=== PATIENT | female | born 1975 ===

== ENCOUNTER 2019-10-10 17:35 | Emergency (ER) | payer OTHER ==
[2019-10-10 18:44] VITALS: BP 117/63
--- NOTE | 2019-10-10 18:48 | UC ---
Respiratory Complaint HPI - HPI Summary HPI Summary: 44-year-old female presents with complaints of cough and shortness of breath. States for approximately 3-4 weeks she's been having nasal congestion, sinus pressure, sore throat, and a nonproductive cough. States symptoms were improving however today developed fever, worsening cough, and shortness of breath. States chest feels "tight". Max temperature 100.5 F. Patient is a smoker. 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 Reports significant other has been having URI symptoms for the past 2-3 weeks as well. Denies headache, ear pain, dysphagia, palpitations, weakness, dizziness, abdominal pain, nausea, vomiting, or diarrhea. - History of Current Complaint Chief Complaint: UCRespiratory Stated Complaint: FEVER,SORE THROAT Time Seen by Provider: 10/10/19 17:58 Hx Obtained From: Patient Hx Last Menstrual Period: 1 month ago Pain Intensity: 3 - Allergies/Home Medications Allergies/Adverse Reactions: Allergies Allergy/AdvReac Type Severity Reaction Status Date / Time No Known Allergies Allergy Verified 10/10/19 17:57 Home Medications: Home Medications Acetaminophen [Tylenol Extra Strength] 500 mg PO ONCE PRN 10/10/19 [History Confirmed 10/10/19] Cough Medicine* PO ONCE PRN 10/10/19 [History] Doxycycline Hyclate 100 mg PO BID 10 Days #20 tablet 10/10/19 [Rx] Omeprazole 40 mg PO DAILY 10/10/19 [History Confirmed 10/10/19] PMH/Surg Hx/FS Hx/Imm Hx GI/ History: Gastroesophageal Reflux - Surgical History Surgical History: None - Family History Family History: Denies significant FMH - Social History Occupation: Employed Full-time Lives: With Family Alcohol Use: None Substance Use Type: None Smoking Status (MU): Current Every Day Smoker Type: Cigarettes Amount Used/How Often: 1/2 ppd Review of Systems All Other Systems Reviewed And Are Negative: Yes Constitutional: Positive: Fever, Fatigue Eyes: Negative: Drainage, Eye Redness ENT: Positive: Sore Throat, Nasal Discharge, Sinus Congestion, Sinus Pain/ Tenderness. Negative: Ear Ache Respiratory: Positive: Shortness Of Breath, Cough Cardiovascular: Negative: Palpitations, Chest Pain Gastrointestinal: Negative: Abdominal Pain, Vomiting, Nausea Genitourinary: Positive: Negative Musculoskeletal: Positive: Negative Neurological/Mental Status: Positive: Negative Is Patient Immunocompromised?: No Physical Exam - Summary Physical Exam Summary: GENERAL APPEARANCE: Well developed, well nourished, alert and cooperative, and appears to be in no acute distress. EYES: Conjunctiva clear. No drainage. EARS: External auditory canals and tympanic membranes clear, hearing grossly intact. NOSE: Mild-moderate nasal congestion without discharge. NECK: Neck supple, non-tender without lymphadenopathy. CARDIAC: Normal S1 and S2. No S3, S4 or murmurs. Rhythm is regular. There is no peripheral edema, cyanosis or pallor. Extremities are warm and well perfused. Capillary refill is less than 2 seconds. Peripheral pulses intact. LUNGS: Breath sounds diminished without rales, rhonchi, orwheezing. ABDOMEN: Positive bowel sounds. Soft, nondistended, nontender. No guarding or rebound. No masses or hepatosplenomegally. MUSKULOSKELETAL: ROM intact to all extremities. No joint erythema or tenderness. Normal muscular development. Normal gait. SKIN: Skin normal color, texture and turgor with no lesions or eruptions. Triage Information Reviewed: Yes Vital Signs Reviewed: Yes Diagnostics - Radiology No standard instances Radiology Interpretation Completed By: ED Physician - No acute cardiopulmonary patholgy Respiratory Course/Dx - Course Course Of Treatment: 44-year-old female presents with complaints of cough and shortness of breath. States for approximately 3-4 weeks she's been having nasal congestion, sinus pressure, sore throat, and a nonproductive cough. States symptoms were improving however today developed fever, worsening cough, and shortness of breath. States chest feels "tight". Max temperature 100.5 F. Patient is a smoker. 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 Reports significant other has been having URI symptoms for the past 2-3 weeks as well. Denies headache, ear pain, dysphagia, palpitations, weakness, dizziness, abdominal pain, nausea, vomiting, or diarrhea. Afebrile however patient reports taking acetaminophen approximately 4 hours prior to arriving at the clinic. Remainder signs are stable. Patient was in no acute respiratory distress, and mild to moderate nasal congestion, normal TMs, normal pharynx without tonsillar swelling or exudate, no cervical lymphadenopathy, diminished bilateral breath sounds without rales, rhonchi, wheezes, and otherwise unremarkable exam. Chest x-ray showed no acute cardiopulmonary pathology. A rapid flu test and rapid strep test were obtained however results returned invalid since I have a low suspicion for either of these decision was made to not retest. With patient's history of potential environmental contact with COVID-19 and new onset of fever and shortness of breath testing for the COVID-19 virus was performed and is pending. Considering the duration and worsening of her symptoms and her being a smoker I will begin treatment for a upper respiratory infection with cough with doxycycline 100 mg twice a day 10 days as well as symptomatic treatment pending her test results. She was instructed on home isolation for COVID-19. She is to follow-up with her primary care provider in 7 days if symptoms are not improving. Anticipatory guidance and warning symptoms were reviewed the patient. Verbalizes understanding and agrees with plan of care. - Differential Dx/Diagnosis Differential Diagnosis/HQI/PQRI: Bronchitis, Influenza, Lower Resp Infection, SARS - COVID-19, Sinusitis, Other - URI Provider Diagnosis: Upper respiratory infection with cough and congestion Discharge ED - Sign-Out/Discharge Documenting (check all that apply): Patient Departure All imaging exams completed and their final reports reviewed: No - Discharge Plan Condition: Stable Disposition: HOME Prescriptions: Doxycycline Hyclate 100 mg PO BID 10 Days #20 tablet Forms: COVID-19 Tested & Isolation Referrals: Jacquelin Warren MD [Primary Care Provider] - 5 Days Additional Instructions: The rapid flu test and rapid strep tests were invalid however I have a low suspicion for either of these therefore we did not choose to rerun the tests. The chest x-ray performed in the clinic today showed no pneumonia. The x-ray will be reviewed by the radiologist tomorrow and if they see anything that I did not we will notify you if there is any change in your plan of care. You were tested for the COVID-19 virus today. Please refer to instructions provided regarding self-isolation. You'll need to remain on self-isolation for 14 days or until you have been notified by the health department that your test was negative and that she will no longer needed to self-isolate. Your history and exam are consistent with an upper respiratory infection. Considering the duration of your symptoms we will start to on an antibiotic treat for a possible secondary bacterial infection. Start doxycycline 100 mg twice a day for 10 days. Do not drink milk, eat milk products, or takes supplements containing calcium for at least 2 hours before after taking this medication as the calcium can affect the absorption. This antibiotic will also make you more sensitive to the sunlight therefore it is recommended that you try to avoid sun exposure while taking. If you must be outdoors take appropriate precautions including sunscreen, long sleeves, and hat. Drink plenty of fluids to avoid dehydration especially if you are running any fever. Use a saline rinse kit such as Neti Pot or NeilMed at least twice a day to help thin secretions and promote drainage of the sinuses. Use fluticasone (Flonase) nasal spray 2 sprays each nostril once daily. Take over the counter acetaminophen (Tylenol) or ibuprofen (Advil, Motrin) according to directions as needed for pain or fever. Follow up with your primary care provider in 7 days if symptoms persist. Seek immediate medical attention in the emergency room if you have fever greater than 100.5 F despite taking acetaminophen or ibuprofen, have chest pain , difficulty breathing, are unable to swallow, or have any worsening of symptoms. - Billing Disposition and Condition Condition: STABLE Disposition: Home - Attestation Statements Provider Attestation: This patient was not seen by me. I was available for consult. Chart reviewed. MARYSOL
[2019-10-10] MEDS ORDERED: DOXYcycline CAP(*) 100 MG PO ONE (19:19)
--- NOTE | 2019-10-11 10:13 | UC ---
- Progress Note Progress Note: Final radiologist reading of chest x-ray from October 10, 2019 comes back as no acute disease process. Provider's interpretation of same is the same therefore there is no discrepancy. Course/Dx - Diagnoses Provider Diagnoses: Upper respiratory infection with cough and congestion Discharge ED - Sign-Out/Discharge Documenting (check all that apply): Patient Departure All imaging exams completed and their final reports reviewed: Yes - Discharge Plan Condition: Stable Disposition: HOME Prescriptions: Doxycycline Hyclate 100 mg PO BID 10 Days #20 tablet Forms: COVID-19 Tested & Isolation Referrals: Jacquelin Warren MD [Primary Care Provider] - 5 Days Additional Instructions: The rapid flu test and rapid strep tests were invalid however I have a low suspicion for either of these therefore we did not choose to rerun the tests. The chest x-ray performed in the clinic today showed no pneumonia. The x-ray will be reviewed by the radiologist tomorrow and if they see anything that I did not we will notify you if there is any change in your plan of care. You were tested for the COVID-19 virus today. Please refer to instructions provided regarding self-isolation. You'll need to remain on self-isolation for 14 days or until you have been notified by the health department that your test was negative and that she will no longer needed to self-isolate. Your history and exam are consistent with an upper respiratory infection. Considering the duration of your symptoms we will start to on an antibiotic treat for a possible secondary bacterial infection. Start doxycycline 100 mg twice a day for 10 days. Do not drink milk, eat milk products, or takes supplements containing calcium for at least 2 hours before after taking this medication as the calcium can affect the absorption. This antibiotic will also make you more sensitive to the sunlight therefore it is recommended that you try to avoid sun exposure while taking. If you must be outdoors take appropriate precautions including sunscreen, long sleeves, and hat. Drink plenty of fluids to avoid dehydration especially if you are running any fever. Use a saline rinse kit such as Neti Pot or NeilMed at least twice a day to help thin secretions and promote drainage of the sinuses. Use fluticasone (Flonase) nasal spray 2 sprays each nostril once daily. Take over the counter acetaminophen (Tylenol) or ibuprofen (Advil, Motrin) according to directions as needed for pain or fever. Follow up with your primary care provider in 7 days if symptoms persist. Seek immediate medical attention in the emergency room if you have fever greater than 100.5 F despite taking acetaminophen or ibuprofen, have chest pain , difficulty breathing, are unable to swallow, or have any worsening of symptoms. - Billing Disposition and Condition Condition: STABLE Disposition: Home
== END 2019-10-10 19:45 | disposition home or self-care (01) ==
LOC: UCEAST 17:35
DX: J06.9 Acute upper respiratory infection, unspecified (principal); R05 Cough; R09.89 Other specified symptoms and signs involving the circulatory and respiratory systems; R06.02 Shortness of breath; R50.9 Fever, unspecified; Z20.828 Contact with and (suspected) exposure to other viral communicable diseases; K21.9 Gastro-esophageal reflux disease without esophagitis; Z79.899 Other long term (current) drug therapy; F17.210 Nicotine dependence, cigarettes, uncomplicated
CPT/HCPCS: 71046; 87635; 99202; A9270-GY; G0463